=== PATIENT | female | born 1980 | race African-American/Black ===

== ENCOUNTER 2023-11-22 13:08 | Inpatient (IN) | payer BC ==
[2023-11-22 14:28] VITALS: BMI 34.1
[2023-11-22] MEDS ORDERED: IBUPROFEN 400 MG TABLET (FP) PO PRN (15:39)
[2023-11-22] MEDS ORDERED: ACETAMINOPHEN 325 MG TABLET (FP) PO PRN (15:39)
[2023-11-22] MEDS ORDERED: NALOXONE HCL 0.4 MG/ML VIAL IM PRN (15:39)
[2023-11-22] MEDS ORDERED: BENZOCAINE/MENTHOL (CHLORASEPTIC ) LOZENGE MM PRN (15:39)
[2023-11-22] MEDS ORDERED: NALOXONE HCL (KLOXXADO) 8 MG SPRAY NS PRN (15:39)
[2023-11-22] MEDS ORDERED: IBUPROFEN 600 MG TABLET (FP) PO PRN (15:39)
[2023-11-22] MEDS ORDERED: POLYETHYLENE GLYCOL (HEALTHYLAX) 3350 17 GM PACKET PO PRN (15:39)
[2023-11-22] MEDS ORDERED: BENZONATATE 200 MG CAPSULE PO PRN (15:39)
[2023-11-22] MEDS ORDERED: DICYCLOMINE HCL 10 MG CAPSULE PO PRN (15:39)
[2023-11-22] MEDS ORDERED: BISMUTH SUBSALICYLATE 524 MG/30 ML PO PRN (15:39)
[2023-11-22] MEDS ORDERED: ONDANSETRON *ODT* 4 MG TABLET SL PRN (15:39)
[2023-11-22] MEDS ORDERED: LORazepam 1 MG TABLET PO PRN (15:39)
[2023-11-22] MEDS ORDERED: LOPERAMIDE HCL 2 MG CAPSULE PO PRN (15:39)
[2023-11-22] MEDS ORDERED: ALBUTEROL SO4 HFA INHALER IH PRN (15:57)
[2023-11-22] MEDS: NICOTINE 14 MG/24 HOURS TOPICAL PATCH TD SCH (17:29)
[2023-11-22] MEDS: LORazepam 2 MG TABLET PO SCH (17:30)
[2023-11-22] MEDS: PRENATAL VITAMINS W/ FOLIC ACID TABLET (FP) PO SCH (17:30)
[2023-11-22] MEDS: METHOCARBAMOL 500 MG TABLET PO PRN (17:33)
[2023-11-22] MEDS: ATORVASTATIN CA 10 MG TABLET (FP) PO SCH (22:11)
[2023-11-22] MEDS: MELATONIN 5 MG TABLETS PO SCH (22:11)
[2023-11-22] MEDS: IBUPROFEN 400 MG TABLET (FP) PO SCH (22:11)
[2023-11-22] MEDS: THIAMINE HCL 100 MG TABLET (FP) PO SCH (22:11)
[2023-11-23] MEDS: hydrOXYzine PAMOATE 25 MG CAPSULE (FP) PO PRN (10:54)
[2023-11-23 15:26] LABS: CHLORIDE 105 mmol/L (98-107); POTASSIUM 3.6 mmol/L (3.5-5.1); SODIUM 139 mmol/L (136-145)
[2023-11-23 15:28] LABS: CALCIUM 8.9 mg/dL (8.5-10.1)
[2023-11-23 15:29] LABS: ALBUMIN 3.5 g/dl (3.4-5.0); ANION GAP 6 mmol/L (4-13); BLOOD UREA NITROGEN 3.5 mg/dL (7-18); CO2 27 mmol/L (21-32); GLUCOSE,RANDOM 121 mg/dL (74-106)
[2023-11-23 15:32] LABS: CREATININE 0.7 mg/dL (0.55-1.3); SGOT/AST 24 U/L (15-37); SGPT/ALT 28 U/L (13-61)
[2023-11-23 15:34] LABS: BILIRUBIN,TOTAL 0.6 mg/dL (0.2-1)
[2023-11-23 15:35] LABS: ALK PHOS 81 U/L (45-117)
[2023-11-23 15:43] LABS: HEMATOCRIT 42.5 % (32.4-45.2); HEMOGLOBIN 13.7 GM/dL (10.7-15.3); MCH 28.6 pg (25.7-33.7); MCHC 32.2 g/dl (32.0-36.0); MEAN CELL VOLUME 88.8 fl (80-96); MEAN PLT VOLUME 10.8 fl (7.5-11.1); PLATELET COUNT 159 10^3/uL (134-434); RBC 4.78 M/mm3 (3.60-5.2); RDW 15.9 % (11.6-15.6); WHITE BLOOD COUNT 7.2 K/mm3 (4.0-10.0)
[2023-11-23] MEDS: MAGNESIUM HYDROX 2400MG/30ML ORAL SUSPENSION 30 ML CUP PO PRN (17:17)
[2023-11-23] MEDS: guaiFENesin 600 MG TABLET.ER (FP) PO PRN (17:17)
[2023-11-23] MEDS: LACTULOSE 20 GM/30 ML UDC (FOR ORAL USE ONLY) PO SCH (22:47)
[2023-11-24] MEDS: LORazepam 1 MG TABLET PO SCH (05:42)
[2023-11-25] MEDS ORDERED: LORazepam 0.5 MG TABLET PO PRN
[2023-11-25] MEDS: LORazepam 0.5 MG TABLET PO SCH (05:48)
[2023-11-25] MEDS: MAG HYDROX/AL HYDROX/SIMETH 30 ML UNIT-DOSE CUP PO PRN (20:44)
[2023-11-26] MEDS: LORazepam 0.5 MG TABLET PO ONE (05:55)
[2023-11-26 09:01] VITALS: RESP 17
[2023-11-26 12:31] VITALS: BP 130/80; PULSE 80; TEMP 98.4
== END 2023-11-26 12:57 | disposition other institution (70) | DRG 775 ==
LOC: YASAS 13:08 → Y3N 16:23
PROVIDERS: ADMIT Surgery; ATTEND Allergy & Immunology
PROC: HZ2ZZZZ Detoxification Services for Substance Abuse Treatment (ICD-10-PCS; principal; 2023-11-22)
DX: F10.230 Alcohol dependence with withdrawal, uncomplicated (principal); F16.10 Hallucinogen abuse, uncomplicated; F19.24 Other psychoactive substance dependence with psychoactive substance-induced mood disorder; E72.20 Disorder of urea cycle metabolism, unspecified; I25.10 Atherosclerotic heart disease of native coronary artery without angina pectoris; Z95.5 Presence of coronary angioplasty implant and graft; E78.5 Hyperlipidemia, unspecified; J45.909 Unspecified asthma, uncomplicated; R41.82 Altered mental status, unspecified; Z85.9 Personal history of malignant neoplasm, unspecified; Z62.810 Personal history of physical and sexual abuse in childhood; Z91.410 Personal history of adult physical and sexual abuse; Z28.310 Unvaccinated for COVID-19; Z28.9 Immunization not carried out for unspecified reason
CPT/HCPCS: 36415; 80053; 80307; 81025; 82140; 84436; 84439; 84443; 84480; 84481; 85027; 86593; 86780; 87811; 93005; 93010

== ENCOUNTER 2023-11-26 13:10 | Inpatient (IN) | payer BC ==
[2023-11-26] MEDS ORDERED: IBUPROFEN 400 MG TABLET (FP) PO PRN (16:15)
[2023-11-26] MEDS ORDERED: NICOTINE POLACRILEX 4 MG LOZENGE BC PRN (16:15)
[2023-11-26] MEDS ORDERED: LOPERAMIDE HCL 2 MG CAPSULE PO PRN (16:15)
[2023-11-26] MEDS ORDERED: NALOXONE HCL 0.4 MG/ML VIAL IVPUSH PRN (16:15)
[2023-11-26] MEDS ORDERED: MAG HYDROX/AL HYDROX/SIMETH 30 ML UNIT-DOSE CUP PO PRN (16:15)
[2023-11-26] MEDS ORDERED: BENZOCAINE/MENTHOL (CHLORASEPTIC ) LOZENGE MM PRN (16:15)
[2023-11-26] MEDS ORDERED: BENZONATATE 200 MG CAPSULE PO PRN (16:15)
[2023-11-26] MEDS ORDERED: ACETAMINOPHEN 325 MG TABLET (FP) PO PRN (16:15)
[2023-11-26] MEDS ORDERED: guaiFENesin 600 MG TABLET.ER (FP) PO PRN (16:15)
[2023-11-26] MEDS ORDERED: NALOXONE (NYS OPIOID OVERDOSE PROGRAM) 4 MG/0.1 ML SPRAY NS PRN (16:15)
[2023-11-26] MEDS ORDERED: METHOCARBAMOL 500 MG TABLET PO PRN (16:15)
[2023-11-26] MEDS ORDERED: NICOTINE POLACRILEX 4 MG GUM BUC PRN (16:15)
[2023-11-26] MEDS: MELATONIN 5 MG TABLETS PO SCH (21:13)
[2023-11-26] MEDS: ATORVASTATIN CA 10 MG TABLET (FP) PO SCH (21:14)
[2023-11-26] MEDS: THIAMINE 100 MG TABLET PO SCH (21:14)
[2023-11-27] MEDS: PRENATAL VITAMINS W/ FOLIC ACID TABLET (FP) PO SCH (10:18)
[2023-11-27] MEDS: NICOTINE 21 MG/24 HOURS TOPICAL PATCH TD SCH (10:19)
[2023-11-27] MEDS: ALBUTEROL SO4 HFA INHALER IH PRN (23:19)
[2023-12-02] MEDS: HYDROCORTISONE 0.5% TOPICAL CREAM 30 GM TUBE TP PRN (10:28)
[2023-12-04] MEDS: NALTREXONE HCL 50 MG TABLET PO SCH (10:11)
[2023-12-05] MEDS: NALTREXONE HCL 50 MG TABLET PO SCH (10:11)
[2023-12-06] MEDS: MAGNESIUM HYDROX 2400MG/30ML ORAL SUSPENSION 30 ML CUP PO PRN (21:08)
[2023-12-07] MEDS: hydrOXYzine PAMOATE 25 MG CAPSULE (FP) PO PRN (21:15)
[2023-12-08] MEDS: NALTREXONE MICROSPHERES (VIVITROL) 380 MG DISP.SYRIN IM ONE (18:00)
[2023-12-10] MEDS: POLYETHYLENE GLYCOL (HEALTHYLAX) 3350 17 GM PACKET PO PRN (23:36)
[2023-12-12] MEDS: SODIUM PHOSPHATE/NA BIPHOS 133 ML ENEMA RC ONE (11:18)
[2023-12-13] MEDS: DOCUSATE SODIUM 100 MG CAPSULE (FP) PO SCH (09:30)
[2023-12-13] MEDS ORDERED: SENNOSIDES 8.6MG TABLET (FP) PO SCH (11:00)
[2023-12-13] MEDS: BISMUTH SUBSALICYLATE 262 MG/15 ML BTL PO SCH (12:57)
[2023-12-13] MEDS: SENNOSIDES 8.6MG TABLET (FP) PO SCH (21:12)
[2023-12-14] MEDS: IBUPROFEN 600 MG TABLET (FP) PO PRN (06:36)
[2023-12-18 07:13] VITALS: RESP 18
[2023-12-20 06:55] VITALS: PULSE 88; TEMP 97.4
[2023-12-20 10:15] VITALS: BP 116/67
== END 2023-12-20 13:17 | disposition home or self-care (01) | DRG 772 ==
LOC: YASAS 13:10 → Y5N 13:14
PROVIDERS: ADMIT Allergy & Immunology; ATTEND Psychiatry & Neurology Pain Medicine
PROC: HZ42ZZZ Group Counseling for Substance Abuse Treatment, Cognitive-Behavioral (ICD-10-PCS; principal; 2023-11-26)
DX: F10.20 Alcohol dependence, uncomplicated (principal); F16.20 Hallucinogen dependence, uncomplicated; F17.210 Nicotine dependence, cigarettes, uncomplicated; F32.A Depression, unspecified; E78.5 Hyperlipidemia, unspecified; I25.10 Atherosclerotic heart disease of native coronary artery without angina pectoris; Z95.5 Presence of coronary angioplasty implant and graft; K59.00 Constipation, unspecified; L30.9 Dermatitis, unspecified; M54.50 Low back pain, unspecified; G89.29 Other chronic pain
CPT/HCPCS: 80305; 82962; J2315